=== PATIENT | male | born 1955 | race Two or more races ===

== ENCOUNTER → 2024-11-06 | Outpatient (CLI) | payer MEDICARE, SELFPAY ==
[2024-11-06 10:34] LABS: Albumin, Serum 4.3 gm/dL (3.4-4.8); Anion Gap 5 (7-16); BUN/Creatinine Ratio 11 Ratio (12-20); Blood Urea Nitrogen 10 mg/dL (9-23); Calcium 9.5 mg/dL (8.3-10.6); Calcium (Corrected) 9.5 mg/dL (8.5-10.1); Carbon Dioxide 29.6 mMol/L (20.0-31.0); Chloride 105 mMol/L (98-107); Creatinine (Component) 0.9 mg/dL (0.6-1.3); Glucose 93 mg/dL (74-106); Osmolality,Calculated 278 (275-295); Phosphorous 2.5 mg/dL (2.4-5.1); Potassium 4.2 mMol/L (3.4-5.1); Sodium 140 mMol/L (136-145); eGFR > 60 See Note
[2024-11-13 06:37] LABS: CA 19-9 Antigen* 35 U/mL (<34)
== END | disposition home or self-care (01) ==
LOC: COPL 09:04
PROVIDERS: PCP Internal Medicine; Referring Provider Internal Medicine; Visit Provider Internal Medicine
DX: R97.8 Other abnormal tumor markers (principal)
CPT/HCPCS: 36415; 80069; 86301

== ENCOUNTER 2025-01-07 09:20 | Outpatient (RCR) | payer MEDICARE, SELFPAY ==
--- NOTE | 2025-01-07 13:47 | CTCFLWUP_ITS ---
Patient: TAVON VIZCAINO : 1955 Page 2 of 5 FOLLOW UP NOTE DATE OF SERVICE: 01/07/2025 NAME: TAVON VIZCAINO ACCOUNT: [id number] : 1955 AGE: 69 INTERVAL HISTORY: Tavon Vizcaino, a former heavy smoker with a significant history of smoking and recent weight loss, presents for follow-up after a CT scan revealed pulmonary nodules and a kidney stone. He reports improved breathing with daily Trelegy use and has regained 8 pounds of the 30 pounds lost. He currently smokes marijuana daily and has a supportive family. Plans include further evaluation of the pulmonary and renal nodules, monitoring weight, and counseling on substance use. HISTORY OF PRESENT ILLNESS: Chief Complaint Follow-up for pulmonary nodules found on CT scan, kidney nodule, kidney stone, elevated cancer marker, weight loss, breathing difficulties History of Present Illness Tavon is a patient with a history of smoking and recent weight loss who presents for follow-up after abnormal CT findings. He reports a significant weight loss of almost 30 pounds, though he has since regained 8 pounds. The weight loss was associated with breathing difficulties that affected his eating. He is currently using Trelegy daily for breathing issues. Tavon has a long history of smoking, having smoked a pack a day for 40-50 years starting at age 16. He quit smoking cigarettes a year ago but now uses marijuana daily, smoking 3-4 times a day. He previously drank alcohol heavily but has abstained for over 20 years. His children encouraged him to quit both drinking and smoking. 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 Tavon has four children and nine grandchildren, indicating a supportive family structure. 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 Negative for fever, chills. Respiratory: Positive for trouble breathing. OTHER MEDICAL HISTORY/CONDITIONS: COPD Left TKA - 15 yrs ago Left shoulder surgery - age 20 Ralph inguinal hernia repair - 10 yrs ago ?Clone Other Med Hx? FAMILY HISTORY: Patient?denies?family?cancer?history. ?Clone Family Hx? 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 cyanocobalamin (vitamin B-12) - 3,000 mcg 1 tab Daily 2. ferrous sulfate - 325 mg (65 mg iron) 1 tab Daily 3. Trelegy Ellipta - 200-62.5-25 mcg 1 Puff(s) Daily 4. Ventolin HFA - 90 mcg/actuation 1 Puff(s) Three times a day?Palabra Meds? Medications Last Reconciled by Tova Medina RN on 01/07/2025 ALLERGIES: No Known Drug Allergies REVIEW OF SYSTEMS: A complete 14-point review of systems was performed and is negative except as noted in interval history. PHYSICAL EXAMINATION: VITAL SIGNS: Temperature?98.6, B/P?156/92, Height?72?inches, Oxygen?Saturation?94% Weight?138?lbs PAIN: 0 - No pain ECOG Performance Status: 1 - Symptomatic; ambulatory; restricted in strenuous activity GENERAL APPEARANCE: Appears well, in no apparent distress, appropriately interactive. HEENT: Normocephalic, no temporal wasting, normal conjunctiva, no scleral icterus, normal hearing, lips without lesions, neck normal range of motion. CARDIOVASCULAR: Not assessed. PULMONARY: Expiratory wheezing EXTREMITIES: No pedal edema or cyanosis. SKIN: Normal skin appearance. NEUROLOGIC: Alert and oriented x4. PSHYCHIATRIC: Appropriate affect, mood normal, behavior normal, intact thought and speech. LABORATORY DATA: I have personally reviewed and interpreted each of the patient?s relevant lab tests, abnormal findings are below: Date Laboratory, Imaging, and Diagnostic Test Results - CT scan (04/03/2024): - Small non-calcified pulmonary nodule - 3 mm nodule in left upper lung lobe - 13 mm stone in lower pole of right kidney - Labs (date not specified): - Slight elevation in one cancer marker (specific marker and value not provided) - Other labs reported as mostly good (specific tests and values not provided) ASSESSMENT/PLAN: Tavon is a former smoker with a history of heavy alcohol use, presenting with pulmonary nodules, renal nodule, and recent weight loss, now regained. Pulmonary nodules Assessment: CT scan on 04-03-2024 revealed a small non-calcified pulmonary nodule and a 3 mm nodule in the left upper lung lobe. Patient has a significant smoking history of 40-50 years, one pack per day, starting at age 16 and quitting one year ago. Currently uses marijuana daily. Occupational history includes 27 years in agriculture and [employer], and 10 years in laundry at a [employer] [facility], which may have exposed the patient to potential carcinogens. Patient reported trouble breathing, now managed with Trelegy. These findings, combined with the patient's smoking history and occupational exposures, raise concern for potential malignancy. Plan: - Perform pulmonary function test to assess lung function - Evaluate for potential cancer (CT scan need follow-up) - Review all labs, including the slightly elevated cancer marker - Follow-up appointment in 4 weeks Renal nephrolithiasis Assessment: CT scan revealed a nodule in the right kidney and a 13 mm stone in the lower pole. The renal nodule requires further evaluation to determine its nature and potential clinical significance. The 13 mm kidney stone may require intervention depending on symptoms and other clinical factors. Plan: - Follow-up with the primary care Weight fluctuation Assessment: Patient reports significant weight loss of almost 30 pounds, followed by regain of 8 pounds. Initial weight loss was associated with breathing difficulties affecting eating. The recent weight regain may be related to improved respiratory symptoms with Trelegy use. Plan: - Monitor weight at follow-up visits - Assess nutritional status and dietary intake Rule out underlying malignancy Substance use Assessment: Patient quit smoking cigarettes one year ago after a 40-50 year history of smoking one pack per day. Currently uses marijuana 3-4 times daily. History of heavy alcohol use, but has abstained for over 20 years. Family support played a role in cessation of alcohol and tobacco use. Plan: - Mopper on risks of continued marijuana use - Encourage continued abstinence from alcohol and tobacco - Consider referral to substance use counseling if patient is interested in reducing marijuana use. At this time patient do not want to quit Anemia Patient have a hemoglobin less than 10 Will evaluate if it is from chronic kidney disease or any other problems Myeloma workup ordered Anemia workup done Decreased renal function likely CKD Referral placed to hospice chaplain Will evaluate for multiple myeloma Will check for erythropoietin level ORDERS: Order # Description [id number] Comprehensive Metabolic Panel - 12 + CBC with Auto Diff + CA 19-9 + CEA [id number] CT Scan + Chest + Abdomen and Pelvis + With W/O Contrast [id number] Serum Protein Electrophoresis + Free kappa and lambda light chains plus ratio, quantitative + Serum Immunofixation Electrophoresis [id number] MD Follow Up 4 Week [id number] AFP RETURN TO CLINIC: BILLING AND COMPLIANCE: I reviewed external records from providers outside my specialty as summarized above. I spent a total of 50 minutes on this patient?s care on the day of their visit excluding time spent related to any billed procedures. This time includes time spent with the patient as well as time spent documenting in the medical record, reviewing patients records and tests, obtaining history, placing orders, communicating with other healthcare professionals, counseling the patient, family or caregiver, and/or care coordination for the diagnoses above. Electronically Signed by: Brett Vale MD T: 1:45 PM CC: PCP: Magdi Sanchez Referring: Magdi Sanchez This document was completed utilizing speech recognition software. Grammatical errors, random word insertions, pronoun errors, and incomplete sentences are an occasional consequence of this system due to software limitations, ambient noise, and hardware issues. Any formal questions or concerns about the content, text or information contained within the body of this dictation should be directly addressed to the provider for clarification.
== END 2025-01-09 23:59 | disposition home or self-care (01) ==
LOC: SCTC 09:20
PROVIDERS: PCP Internal Medicine; Referring Provider Internal Medicine; Visit Provider Internal Medicine Hematology & Oncology
DX: R91.8 Other nonspecific abnormal finding of lung field (principal); N20.0 Calculus of kidney; Z87.891 Personal history of nicotine dependence; R63.4 Abnormal weight loss; Z68.1 Body mass index [BMI] 19.9 or less, adult
CPT/HCPCS: 99213; G0463

== ENCOUNTER → 2025-03-11 | Outpatient (CLI) | payer MEDICARE, SELFPAY ==
[2025-03-11 08:18] LABS: Collection Type, Urine Clean Catch
[2025-03-11 08:44] LABS: Basophils % (Auto) 1 % (0-2.5); Eosinophils # (Auto) 0.1 Thou/mm3 (0.0-0.5); Eosinophils % (Auto) 1 % (0-10); Hematocrit 45.6 % (41.0-53.0); Hemoglobin 15.2 g/dL (13.5-16.0); Immature Granulocytes % (Auto) 0 % (0-0); Immature Granulocytes Auto 0.02 Thou/mm3 (0.00-0.00); Lymphocytes # (Auto) 1.4 Thou/mm3 (1.0-4.8); Lymphocytes % (Auto) 23 % (10-50); Mean Corpuscular HGB Conc 33.3 g/dl (31.0-37.0); Mean Corpuscular Hemoglobin 30.3 pg (25.0-35.0); Mean Corpuscular Volume 91 fL (80-100); Monocytes # (Auto) 0.5 Thou/mm3 (0.0-0.8); Monocytes % (Auto) 8 % (0-12); Neutrophils % (Auto) 67 % (37-80); Nucleated Red Blood Cell % 0 /100 WBC (0); Platelet Count 232 Thou/mm3 (140-440); RDW Standard Deviation 43.6 fL (35.1-43.9); Red Blood Count 5.02 Miln/mm3 (4.50-5.90); White Blood Count 6.1 Thou/mm3 (3.8-10.6)
[2025-03-11 08:58] LABS: Glucose Estimated Average 103 mg/dL (80-131); Hemoglobin A1C 5.2 % Hgb (4.8-6.0); Vitamin B12 > 2000 pg/mL (211-911); Vitamin D 25 Hydroxy Total 35.1 ng/mL (7.3-40.2)
[2025-03-11 09:12] LABS: Bacteria,Urine Rare; Bilirubin,Urine Negative (Negative); Blood,Urine Negative (Negative); Clarity,Urine Clear (Clear/Hazy); Color,Urine Lt-Yellow (Lt Yel-Yel); Glucose, Urine Negative (Negative); Ketones,Urine Negative (Negative); Leukocyte Esterase,Urine Negative (Negative); Nitrite,Urine Negative (Negative); PH,Urine 6.5 (5.0-7.0); Protein,Urine Negative (Neg - Trace); RBC,Urine 3 /hpf (0-3); Specific Gravity,Urine 1.016 (1.001-1.035); Squamous Epithelial Cell,Urine < 1 /hpf (0-5); Urobilinogen,Urine Negative mg/dL (0.0-1.0); WBC,Urine < 1 /hpf (0-5)
[2025-03-11 09:19] LABS: Alanine Aminotransferase 14 U/L (10-49); Albumin, Serum 4.2 gm/dL (3.4-4.8); Albumin/Globulin Ratio 1.9 (1.2-2.2); Alkaline Phosphatase 82 U/L (46-116); Anion Gap 7 (7-16); Aspartate Amino Transferase 20 U/L (0-34); BUN/Creatinine Ratio 10 Ratio (12-20); Bilirubin,Total 0.6 mg/dL (0.3-1.2); Blood Urea Nitrogen 10 mg/dL (9-23); Calcium 9.5 mg/dL (8.3-10.6); Calcium (Corrected) 9.5 mg/dL (8.5-10.1); Carbon Dioxide 27.9 mMol/L (20.0-31.0); Cardiac Risk Estimate 4.1 RATIO (4.0-6.7); Chloride 106 mMol/L (98-107); Cholesterol 187 mg/dL (132-200); Globulin 2.2 gm/dL (2.3-3.5); Glucose 102 mg/dL (74-106); HDL Cholesterol 46 mg/dL (40-60); LDL Cholesterol,Calculated 117 mg/dL (0-130); Osmolality,Calculated 280 (275-295); Potassium 4.1 mMol/L (3.4-5.1); Sodium 141 mMol/L (136-145); Thyroid Stimulating Hormone 0.84 uIU/mL (0.55-4.78); Total Protein 6.4 gm/dL (5.7-8.2); Triglycerides 120 mg/dL (30-150); Uric Acid 5.5 mg/dL (3.7-9.2); eGFR > 60 See Note
== END | disposition home or self-care (01) ==
PROVIDERS: PCP Internal Medicine; Referring Provider Internal Medicine; Visit Provider Internal Medicine
DX: Z00.00 Encounter for general adult medical examination without abnormal findings (principal)
CPT/HCPCS: 36415; 80053; 80061; 81001; 82306; 82607; 83036; 84443; 84550; 85025